=== PATIENT | male | born 1955 | race Caucasian/White ===

== ENCOUNTER 2023-08-25 09:39 | Emergency (ER) | payer BC, SELFPAY ==
[2023-08-25 09:50] VITALS: BP 133/77
[2023-08-25 11:06] LABS: % Eosinophils 4.1 % (0-6); % Immature Granulocytes 0.4 % (0-0.5); % Lymphocytes 30.3 % (20.5-51.1); % Monocytes 8.4 % (1.7-9.3); % Neutrophils 55.8 % (42.2-75.2); Absolute Basophils 0.1 10^3/uL (0-0.2); Absolute Eosinophils 0.3 10^3/uL (0-0.7); Absolute Lymphocytes 2.1 10^3/uL (1.2-3.4); Absolute Monocytes 0.6 10^3/uL (0.1-0.6); Absolute Neutrophils 3.9 10^3/uL (1.4-6.5); Hematocrit 45.2 % (39.0-52.0); Hemoglobin 15.1 g/dL (13.0-18.0); Mean Corp Hgb Conc. 33.4 g/dL (33.0-37.0); Mean Corpuscular Hgb 29.4 pg (27.0-31.0); Mean Corpuscular Volume 87.9 fL (80.0-94.0); Mean Platelet Volume 10.4 fL (7.4-10.4); Nucleated Red Blood Cells % 0 % (-); Platelet Count 214 10^3/uL (130-400); Red Blood Cell Count 5.14 10^6/uL (4.70-6.10); Red Cell Dist. Width 13.1 % (11.5-14.5)
[2023-08-25 11:12] LABS: ALT (SGPT) 22 U/L (0-50); AST (SGOT) 24 U/L (17-59); Albumin 4.2 g/dl (3.5-5.0); Alkaline Phosphatase 75 U/L (38-126); Blood Urea Nitrogen 16 mg/dl (9-20); Calcium 9.6 mg/dl (8.4-10.2); Carbon Dioxide 24 mmol/L (22-30); Chloride 108 mmol/L (98-107); Glucose 114 mg/dl (70-99); Lipase 82 U/L (23-300); Potassium 4.4 mmol/L (3.5-5.1); Sodium 137 mmol/L (135-145); Total Bilirubin 0.6 mg/dl (0.2-1.3); Total Protein 6.8 g/dl (6.3-8.2); eGFR > 60.00
[2023-08-25 11:22] LABS: Troponin I < 0.012 ng/ml
[2023-08-25 11:46] VITALS: BP 114/72
[2023-08-25 12:00] VITALS: BP 114/71
[2023-08-25 13:00] VITALS: BP 112/78
[2023-08-25 14:00] VITALS: BP 121/70
[2023-08-25 14:11] LABS: Troponin I < 0.012 ng/ml
--- NOTE | 2023-08-25 14:31 | ED.GENMED ---
History of Present Illness
General
Chief Complaint: Chest Pain
Source: patient
Exam Limitations: none
Time Seen by Provider: 08/25/23 10:51
Travel History
Have you had any contact with someone who has COVID-19?: No
Do you have any symptoms of coronavirus? Fever > 100 degrees, chills, cough, shortness of breath, sore throat, loss of taste or smell, muscle aches, or headache?: No
Course
Orders/Labs/Results
Orders:
Orders
08/25/23 09:41
EKG [Electrocardiogram (*1)] Urgent
Reason for Study: Chest Pain
EKG- Treatment ONCE
08/25/23 10:48
CMP [Comprehensive Metabolic Panel] Urgent
Complete Blood Count/With Diff Urgent
Lipase Urgent
Troponin I Urgent
08/25/23 11:12
CR Chest - 2 Views Urgent
Comment:
Reason For Exam: L cp
08/25/23 13:41
Troponin I Urgent
08/25/23 14:07
Electrocardiogram (*1) Urgent
Reason for Study: Chest Pain
EKG- Treatment ONCE
Abnormal Lab Results
08/25/23
10:48
Chloride 108 H mmol/L
(98-107)
Glucose 114 H mg/dl
(70-99)
08/25/23 10:48
08/25/23 10:48
Vital Signs
Initial and Last Documented VS:
Initial Vital Signs
Temp Pulse Resp BP Pulse Ox
97.8 F 63 20 133/77 95
08/25/23 09:50 08/25/23 09:50 08/25/23 09:50 08/25/23 09:50 08/25/23 09:50
Last Documented Vital Signs
Temp Pulse Resp BP Pulse Ox
97.8 F 55 13 121/70 95
08/25/23 09:50 08/25/23 14:00 08/25/23 14:00 08/25/23 14:00 08/25/23 09:50
ED Attending Note
-
Portions of this chart may have been created with voice recognition software.� Occasional wrong word or��sound alike� substitutions may have occurred due to the inherent limitations of voice recognition software.
Discharge Plan
Departure
Patient Disposition: Home (Routine Discharge)
Date of Disposition: 08/25/23
Time of Disposition: 14:51
Patient with high blood pressure during this ER visit?: No
Discharge Problem:
Chest pain
Instructions: Chest Pain NON-[facility] [employer] M[employer] Follow Up
Prescriptions:
No Action
atorvastatin [Lipitor] 80 mg Tablet
80 mg PO QPM
clopidogrel [Plavix] 75 mg Tablet
75 mg PO DAILY
aspirin [Aspirin Low-Strength] 81 mg Tablet,Delayed Release (Dr/Ec)
81 mg PO DAILY
valsartan [Diovan] 320 mg Tablet
320 mg PO DAILY
Fish Oil Capsule
1,000 mg PO DAILY
Vitamin D (with calcium)
1 tab PO DAILY
Referrals:
Eduardo Rosales DO [Family Provider] -
Activity Restrictions/Additional Instructions:
Please avoid strenuous or exertional activity until cleared by cardiology. Please see cardiology or your doctor in the next 3 to 5 days s for reevaluation. Return immediately for worsening pain, shortness breath, palpitations, sweating, nausea,
weakness of any kind, numbness, tingling or any other concerns.
Interventions
Interventions:
*Risk Screen - Suicide Last Done: 08/25/23 09:54
*Neglect/Abuse Screening Last Done: 08/25/23 09:54
ED- Fall Risk Assessment Last Done: 08/25/23 11:00
*ED COVID-19 Vaccine History Last Done: 08/25/23 09:54
ED- Cardiac Assessment Last Done: 08/25/23 10:53
Discharge Date and Time
Print Language: KOSOVAN
== END 2023-08-25 15:04 | disposition home or self-care (01) ==
LOC: EMR 09:39
PROVIDERS: EMERGENCY PHYSICIAN Emergency Medicine; FAMILY PHYSICIAN Family Medicine
DX: R07.89 Other chest pain (principal)
CPT/HCPCS: 99285; 71046; 80053; 83690; 84484; 85025; 93005

== ENCOUNTER → 2023-09-18 11:34 | Outpatient (REF) | payer BC, SELFPAY | LOC: DHCBC/DCA 11:34 | PROVIDERS: ATTENDING PHYSICIAN Internal Medicine Cardiovascular Disease; FAMILY PHYSICIAN Family Medicine | DX: R07.2 Precordial pain (principal) | CPT/HCPCS: 78452; 93017; A9500 ==

== ENCOUNTER → 2025-02-15 07:38 | Outpatient (REF) | payer BC, SELFPAY ==
[2025-02-15 08:52] LABS: HDL Cholesterol 43 mg/dl; LDL Cholesterol, Calculated 50 mg/dl; Very Low Density Lipoprotein 14 mg/dl (0-30)
== END ==
LOC: REG 07:38
PROVIDERS: ATTENDING PHYSICIAN Internal Medicine Cardiovascular Disease; FAMILY PHYSICIAN Family Medicine
DX: E78.2 Mixed hyperlipidemia (principal)
CPT/HCPCS: 36415; 80061